=== PATIENT | female | born 1985 | race Caucasian/White ===

== ENCOUNTER 2018-07-23 16:21 | Emergency (ER) | payer OTHER ==
[~2018-07-23] VITALS: Ht 165.1 cm; Wt 59.0 kg
[2018-07-23 16:32] VITALS: BP 129/91
[2018-07-23] MEDS ORDERED: ONDANSETRON ODT 4 MG TAB.RAPDIS PO ONE (17:00)
[2018-07-23] MEDS ORDERED: LIDOCAINE/EPI/TETRACAINE TOPICAL GEL 3 ML. TP ONE (17:20)
--- NOTE | 2018-07-23 18:18 | PHYS DOC ---
Past History Past Medical History: Anxiety, Depression, Hyperthyroid Past Surgical History: Cholecystectomy, Hysterectomy, Tonsillectomy Alcohol Use: None Drug Use: Marijuana Adult General Chief Complaint Chief Complaint: LACERATION/AVULSION HPI HPI 33-year-old female presents with right hand laceration. The patient was cutting an avocado when the knife slipped and cut a 1.5cm laceration on her hand. The patient denies any foreign bodies. The knife was clean at the time. She had immediate pain and bleeding. She could tell it might need stitches so she came to the ER. She denies fever or chills. She has no other injuries. Her tetanus is not up-to-date. Review of Systems Review of Systems Constitutional: Denies fever or chills [] Eyes: Denies change in visual acuity, redness, or eye pain [] HENT: Denies nasal congestion or sore throat [] Respiratory: Denies cough or shortness of breath [] Cardiovascular: No additional information not addressed in HPI [] GI: Denies abdominal pain, nausea, vomiting, bloody stools or diarrhea [] : Denies dysuria or hematuria [] Musculoskeletal: Denies back pain or joint pain [] Integument: Hand laceration[] Neurologic: Denies headache, focal weakness or sensory changes [] Endocrine: Denies polyuria or polydipsia [] All other systems were reviewed and found to be within normal limits, except as documented in this note. Current Medications Current Medications Current Medications Medications (Trade) Dose Ordered Sig/Derek Start Time Stop Time Status Last Admin Dose Admin Lidocaine/ Epinephrine (Let Topical) 3 ml 1X ONCE 07/23/18 17:20 07/23/18 17:21 DC 07/23/18 17:05 3 ML Ondansetron HCl (Zofran Odt) 4 mg 1X ONCE 07/23/18 17:00 07/23/18 17:01 DC 07/23/18 16:55 4 MG Allergies Allergies Allergies Coded Allergies Type Severity Reaction Last Updated Verified ciprofloxacin Allergy Unknown 07/23/18 Yes morphine Allergy Unknown 07/23/18 Yes Physical Exam Physical Exam Constitutional: Well developed, well nourished, no acute distress, non-toxic appearance. [] HENT: Normocephalic, atraumatic, bilateral external ears normal, oropharynx moist, no oral exudates, nose normal. [] Eyes: PERRLA, EOMI, conjunctiva normal, no discharge. [] Neck: Normal range of motion, no tenderness, supple, no stridor. [] Cardiovascular:Heart rate regular rhythm, no murmur [] Lungs & Thorax: Bilateral breath sounds clear to auscultation [] Abdomen: Bowel sounds normal, soft, no tenderness, no masses, no pulsatile masses. [] Skin: 1.5 cm linear laceration of the right palm.[] Back: No tenderness, no CVA tenderness. [] Extremities: No tenderness, no cyanosis, no clubbing, ROM intact, no edema. [] Neurologic: Alert and oriented X 3, normal motor function, normal sensory function, no focal deficits noted. [] Psychologic: Affect normal, judgement normal, mood normal. [] Current Patient Data Vital Signs Vital Signs Date Time Temp Pulse Resp B/P (MAP) Pulse Ox O2 Delivery O2 Flow Rate FiO2 07/23/18 16:32 98.2 109 20 98 Room Air EKG EKG [] Radiology/Procedures Radiology/Procedures [] Course & Med Decision Making Course & Med Decision Making Pertinent Labs and Imaging studies reviewed. (See chart for details) I was able to elucidate repair the patient's wound. Since was established and did not want to close it definitively, but I did want to loosely approximate the skin margins to expedite healing but still allow for drainage. See note below for further details. Patient tolerated the procedure well. I will put her on Keflex prophylactically for 5 days. Patient: Patient had 1.5; laceration to the right palm of her hand. I obtained verbal consent to repair with sutures. A timeout was performed to identify the correct site and procedure. 2% lidocaine and let gel were used to anesthetize the wound. After good anesthesia was achieved, 2 Ethilon 4. 0 interrupted sutures were placed. The margins were loosely approximated. No complications. [] Dragon Disclaimer Dragon Disclaimer This electronic medical record was generated, in whole or in part, using a voice recognition dictation system. BABAK CURTIS DO Jul 23, 2018 18:18
[2018-07-23] MEDS ORDERED: HYDR-971 PO (18:20)
[2018-07-23] MEDS ORDERED: CEPH-264 PO (18:21)
[2018-07-23] MEDS ORDERED: DIPHTH,PERTUSS(ACELL),TET TOX 0.5 ML DISP.SYRIN. VAX IM ONE (18:30)
== END 2018-07-23 18:45 | disposition home or self-care (01) ==
LOC: EDSEX 16:21 → ER 16:21
DX: S61.411A Laceration without foreign body of right hand, initial encounter (principal); F41.9 Anxiety disorder, unspecified; F32.9 Major depressive disorder, single episode, unspecified; E05.90 Thyrotoxicosis, unspecified without thyrotoxic crisis or storm; Z88.1 Allergy status to other antibiotic agents; Z88.5 Allergy status to narcotic agent; W26.0XXA Contact with knife, initial encounter; Y93.89 Activity, other specified; Y92.89 Other specified places as the place of occurrence of the external cause; Y99.8 Other external cause status
CPT/HCPCS: 12001; 90471; 90715; 99283; Q0162